=== PATIENT | male | born 1950 | race Caucasian/White ===

== ENCOUNTER → 2018-03-01 | Outpatient (CLI) | payer OTHER | END | disposition home or self-care (01) | LOC: OIH 12:50 | PROVIDERS: ATTEND Internal Medicine Cardiovascular Disease | DX: Z13.6 Encounter for screening for cardiovascular disorders (principal) | CPT/HCPCS: 75571 ==

== ENCOUNTER 2022-11-01 06:44 | Day surgery (SDC) | payer MEDICARE ==
[2022-10-27 13:23] LABS: BASOPHILS % (AUTO) 0.6 % (0.0-5.0); EOSINOPHILS % (AUTO) 1.4 % (0.0-8.0); HEMATOCRIT 40.7 % (42-54); LYMPHOCYTES % (AUTO) 17.6 % (21.0-51.0); MEAN CORPUSCULAR HEMOGLOBIN 29.8 pg (27.0-33.0); MEAN CORPUSCULAR HGB CONC 33.7 g/dL (32.0-36.0); MEAN CORPUSCULAR VOLUME 88.5 fL (79-99); MONOCYTES % (AUTO) 8.8 % (3.0-13.0); NEUTROPHILS % (AUTO) 71.4 % (40.0-77.0); PLATELET COUNT (AUTO) 283 K/uL (130-400); RED CELL DISTRIBUTION WIDTH 12.9 % (11.0-15.5); WHITE BLOOD COUNT (AUTO) 6.4 K/uL (4.8-10.8)
[2022-10-27 13:43] LABS: CREATININE 0.9 mg/dL (0.5-1.5); POTASSIUM 4.1 mmol/L (3.5-5.1)
[2022-10-27 13:59] LABS: INR 1.04 (0.85-1.15); PROTHROMBIN TIME 11.3 SEC (9.6-11.6)
[2022-10-27 14:01] LABS: PARTIAL THROMBOPLASTIN TIME 28.2 SEC (26.3-35.5)
[2022-10-27 14:56] VITALS: BP 157/83
[2022-10-31 12:10] VITALS: BP 148/76
[~2022-11-01] VITALS: Ht 190.5 cm; Wt 69.7 kg
[2022-11-01] VITALS (10 sets, daily range): BP systolic 92–140; BP diastolic 61–120
[~2022-11-01 06:44] MED LIST: ACET-66 PO; AMLO-257 PO; ASCO100031 PO; ATOR10 PO; CALC-1125 PO; DIGO250T PO; HYDR12.54 PO; LORA10TA60 PO; METO50TA18 PO; METO75TA PO; MULT-1367 PO; TEST200V22 IM; VITAMIN D3 PO; ZINC50TA64 PO
[2022-11-01] MEDS: 0.9%NACL 1000ML 1,000 ML IV SCH ×2 (07:36→08:56)
[2022-11-01] MEDS ORDERED: MIDAZOLAM HCL 1 MG/ML 2ML VIAL ONE ×2 (08:48→09:20)
[2022-11-01] MEDS ORDERED: LIDOCAINE HCL 1% 20 ML VIAL ONE (08:48)
[2022-11-01] MEDS ORDERED: CEFAZOLIN SODIUM 1 GM VIAL ONE ×3 (08:48→14:32)
[2022-11-01] MEDS ORDERED: BUPIVACAINE/PF 0.25% 30ML VIAL IJ ONE (08:48)
[2022-11-01] MEDS ORDERED: MEPERIDINE-PF 25 MG/ML SYG ONE ×2 (08:49→09:20)
[2022-11-01] MEDS ORDERED: BACITRACIN 1 EACH PACKET TP ONE (09:38)
[2022-11-01] MEDS ORDERED: ACETAMINOPHEN 325 MG TAB PO PRN ×2 (10:00)
[2022-11-01] MEDS ORDERED: CEFAZOLIN SODIUM 2 GM VIAL IVP SCH (15:00)
== END 2022-11-01 14:54 | disposition home or self-care (01) ==
LOC: DAH 06:44
PROVIDERS: ATTEND Internal Medicine Cardiovascular Disease
DX: Z45.010 Encounter for checking and testing of cardiac pacemaker pulse generator [battery] (principal); I49.5 Sick sinus syndrome; I10 Essential (primary) hypertension; H91.90 Unspecified hearing loss, unspecified ear; Z79.01 Long term (current) use of anticoagulants; Z79.899 Other long term (current) drug therapy
CPT/HCPCS: 80048; 85025; 85610; 85730; 36415 ×2; 93005; 33228; 80162; C1785; J0690 ×3; J7030; J3490; J2250 ×2; J2175 ×2; A4215; A4222; A4221; A4663; A4216; A4606; A4223 ×3; 99156; 99157